=== PATIENT | female | born 1970 | race Caucasian/White ===

== ENCOUNTER 2023-06-14 16:52 | Emergency (ER) | payer OTHER ==
[~2023-06-14] VITALS: Ht 167.6 cm; Wt 79.4 kg
[2023-06-14 16:58] VITALS: BP_SYST 127; PULSE 90; RESP 20; TEMP 97.9; O2SAT 97
[2023-06-14 17:27] LABS: BASOPHILS % (AUTO) 0.3 % (0.0-2.0); EOSINOPHILS # (AUTO) 0.2 K/uL (0.0-0.4); EOSINOPHILS % (AUTO) 2.5 % (0.0-4.0); HEMATOCRIT 36.3 % (36-48); HEMOGLOBIN 12.1 g/dL (12.0-16.0); LYMPHOCYTES # (AUTO) 2.3 K/uL (1.0-5.5); LYMPHOCYTES % (AUTO) 26.8 % (20.5-51.5); MEAN CORPUSCULAR HEMOGLOBIN 30 pg (27-31); MEAN CORPUSCULAR HGB CONC 33 % (32-36); MEAN CORPUSCULAR VOLUME 89 fL (79.0-98.0); MONOCYTES # (AUTO) 0.7 K/uL (0.0-1.0); NEUTROPHILS # (AUTO) 5.2 K/uL (1.8-7.7); NEUTROPHILS % (AUTO) 62.4 % (40.0-70.0); PLATELET COUNT (AUTO) 266 K/uL (130-430); RED BLOOD CELL COUNT(AUTO) 4.09 MIL/uL (4.2-6.2); RED CELL DISTRIBUTION WIDTH 12.5 % (9.0-15.0); WHITE BLOOD COUNT (AUTO) 8.4 K/uL (4.8-10.8)
[2023-06-14] MEDS ORDERED: NACL 0.9% 1,000 ML IV ONE (17:30)
[2023-06-14] MEDS ORDERED: KETOROLAC TROMETHAMINE 30 MG VIAL IVP ONE (17:30)
[2023-06-14 17:39] LABS: CALCIUM 10.4 mg/dL (8.4-11.0); CREATININE 0.7 mg/dL (0.55-1.30); POTASSIUM 4.4 mmol/L (3.5-5.1)
[2023-06-14 17:44] LABS: ALBUMIN 3.5 g/dL (3.4-4.8); TOTAL BILIRUBIN 0.5 mg/dL (0.0-1.0); TOTAL PROTEIN, SERUM 6.8 g/dL (6.4-8.3)
[2023-06-14 18:53] LABS: BILIRUBIN,URINE NEGATIVE (NEGATIVE); BLOOD, URINE 1+ (NEGATIVE); CLARITY/URINE SLIGHTLY CLOUDY (CLEAR); COLOR,URINE YELLOW (YELLOW); GLUCOSE,URINE NEGATIVE (NEGATIVE); KETONES,URINE NEGATIVE (NEGATIVE); LEUKOCYTE ESTERASE ,URINE NEGATIVE (NEGATIVE); NITRITE, URINE NEGATIVE (NEGATIVE); PH,URINE 5.5 (5.0-8.0); PROTEIN URINE NEGATIVE (NEGATIVE); UROBILINOGEN,URINE 0.2 (0.2-1.0)
[2023-06-14 19:23] LABS: BACTERIA,URINE FEW /HPF (None Seen); CALCIUM OXALATE CRYSTALS,UR 0-10 /HPF (None Seen); FINE GRANULAR CASTS,URINE 0-10 /LPF (None Seen); MUCUS,URINE 3+ /LPF (None Seen); WBC,URINE 0-3 /HPF (0-3)
[2023-06-14] MEDS ORDERED: IBUP-1969 PO (19:56)
[2023-06-14] MEDS ORDERED: CYCL10TA24 PO (19:56)
[2023-06-14] MEDS ORDERED: ACET-2634 PO (19:56)
== END 2023-06-14 20:15 | disposition home or self-care (01) ==
LOC: SED 16:52 → EEVIPCON 16:52 → SED 20:15
DX: R10.12 Left upper quadrant pain (principal); R31.9 Hematuria, unspecified; R35.0 Frequency of micturition; Z79.899 Other long term (current) drug therapy
CPT/HCPCS: 99285; 74176; 96374; 96361; 80053; 81000; 85025; 87040; 36415; 76376; 83605; J1885; J7030

== ENCOUNTER 2023-09-07 05:40 | Day surgery (SDC) | payer OTHER ==
[2023-08-28 10:19] LABS: BASOPHILS % (AUTO) 0.4 % (0.0-2.0); BILIRUBIN,URINE NEGATIVE (NEGATIVE); BLOOD, URINE NEGATIVE (NEGATIVE); CLARITY/URINE CLEAR (CLEAR); COLOR,URINE YELLOW (YELLOW); EOSINOPHILS # (AUTO) 0.1 K/uL (0.0-0.4); GLUCOSE,URINE NEGATIVE (NEGATIVE); HEMATOCRIT 40.4 % (36-48); HEMOGLOBIN 13.2 g/dL (12.0-16.0); KETONES,URINE NEGATIVE (NEGATIVE); LEUKOCYTE ESTERASE ,URINE NEGATIVE (NEGATIVE); LYMPHOCYTES # (AUTO) 2.4 K/uL (1.0-5.5); LYMPHOCYTES % (AUTO) 33.2 % (20.5-51.5); MEAN CORPUSCULAR HEMOGLOBIN 30 pg (27-31); MEAN CORPUSCULAR HGB CONC 33 % (32-36); MEAN CORPUSCULAR VOLUME 92 fL (79.0-98.0); MONOCYTES # (AUTO) 0.5 K/uL (0.0-1.0); MONOCYTES % (AUTO) 6.7 % (1.7-9.3); NEUTROPHILS # (AUTO) 4.2 K/uL (1.8-7.7); NEUTROPHILS % (AUTO) 58.7 % (40.0-70.0); NITRITE, URINE NEGATIVE (NEGATIVE); PH,URINE 6.5 (5.0-8.0); PLATELET COUNT (AUTO) 291 K/uL (130-430); PROTEIN URINE NEGATIVE (NEGATIVE); RED CELL DISTRIBUTION WIDTH 13.5 % (9.0-15.0); UROBILINOGEN,URINE 0.2 (0.2-1.0); WHITE BLOOD COUNT (AUTO) 7.1 K/uL (4.8-10.8)
[2023-08-28 11:11] LABS: ALBUMIN 3.3 g/dL (3.4-4.8); CALCIUM 10.2 mg/dL (8.4-11.0); CREATININE 0.56 mg/dL (0.55-1.30); POTASSIUM 4.7 mmol/L (3.5-5.1); TOTAL BILIRUBIN 0.4 mg/dL (0.0-1.0); TOTAL PROTEIN, SERUM 6.9 g/dL (6.4-8.3)
[~2023-09-07] VITALS: Ht 175.3 cm; Wt 87.1 kg
[~2023-09-07 05:40] MED LIST: ACET-2634 PO; CYCL10TA24 PO; IBUP-1969 PO
[2023-09-07 06:34] LABS: HCG,QUAL RESULT NEGATIVE (NEGATIVE)
[2023-09-07] MEDS ORDERED: LR 1,000 ML IV.SOLN IV ONE (06:55)
[2023-09-07] MEDS ORDERED: BUPIVACAINE /PF 0.5% 30 ML VIAL ONE (06:55)
[2023-09-07] MEDS ORDERED: PROPOFOL 200MG/ 20ML VIAL (DIPRIVAN) IV ONE (06:55)
[2023-09-07] MEDS ORDERED: fentaNYL CITRATE/PF 100 MCG/2 ML AMP ONE (06:55)
[2023-09-07] MEDS ORDERED: ROCURONIUM BROMIDE 10 MG/ML (ZEMURON) ONE (06:55)
[2023-09-07] MEDS ORDERED: NS IRRIG SOLN 1000 ML IR ONE (06:55)
[2023-09-07] MEDS ORDERED: ONDANSETRON HCL 4 MG/2 ML VIAL ONE (06:55)
[2023-09-07] MEDS ORDERED: SUGAMMADEX SODIUM 200 MG/2 ML VIAL IV ONE (06:55)
[2023-09-07] MEDS ORDERED: MIDAZOLAM HCL/PF 2 MG/2 ML SYRINGE ONE (06:55)
[2023-09-07] MEDS ORDERED: DEXAMETHASONE SOD PHOSPHATE 4 MG/ML VIAL ONE (06:55)
[2023-09-07] MEDS ORDERED: DESFLURANE 15 MIN GAS INH ONE (06:55)
[2023-09-07] MEDS ORDERED: LIDOCAINE 2%, 20 ML MDV ONE (06:55)
[2023-09-07] MEDS ORDERED: NS 100 ML BAG ONE (06:55)
[2023-09-07] MEDS ORDERED: ceFAZolin SODIUM 2 GM in D5W 100 ML IV ONE (07:00)
[2023-09-07] MEDS ORDERED: ACETAMINOPHEN I.V. 1000 MG 100 ML IV ONE (08:21)
[2023-09-07] MEDS ORDERED: hydrALAZINE HCL 20 MG/ML VIAL IVP PRN (08:30)
[2023-09-07] MEDS ORDERED: MIDAZOLAM HCL 2 MG/2 ML VIAL (VERSED) IVP PRN (08:30)
[2023-09-07] MEDS ORDERED: MEPERIDINE HCL/PF 25 MG/ML DISP.SYRIN IVP PRN (08:30)
[2023-09-07] MEDS ORDERED: LR 1,000 ML IV SCH (08:30)
[2023-09-07] MEDS ORDERED: HYDROmorphone 1 MG/ML INJ. CARTRIDGE IVP PRN ×2 (08:30)
[2023-09-07] MEDS ORDERED: LABETALOL 100 MG/ 20ML VIAL IVP PRN (08:30)
[2023-09-07] MEDS ORDERED: METOCLOPRAMIDE HCL 10 MG/2 ML VIAL IVP PRN (08:30)
[2023-09-07] MEDS ORDERED: OXYCODONE/ACETAMINOPHEN 5-325 TABLET PO PRN ×2 (10:45)
[2023-09-07] MEDS ORDERED: HYDROcodone/ACETAMIN 5-325 MG TAB (NORCO/ VICODIN) PO PRN (10:45)
[2023-09-07] MEDS ORDERED: HYDROmorphone 1 MG/ML INJ. CARTRIDGE IM PRN (10:45)
[2023-09-07] MEDS ORDERED: ALPRAZolam 0.25 MG TABLET PO PRN (10:45)
[2023-09-07] MEDS ORDERED: ONDANSETRON HCL 4 MG/2 ML VIAL IVP PRN (10:45)
[2023-09-07] MEDS: HYDROmorphone 1 MG/ML INJ. CARTRIDGE ONE ×2 (12:05→12:10)
[2023-09-07 12:45] VITALS: BP_SYST 131; PULSE 79; RESP 18; TEMP 96.8; O2SAT 98
[2023-09-07] MEDS: SIMETHICONE 80 MG TAB.CHEW PO SCH ×3 (14:18→22:03)
[2023-09-07] MEDS: ceFAZolin SODIUM 2 GM in D5W 100 ML IV SCH ×2 (14:18→22:03)
[2023-09-07 14:26] VITALS: BP_SYST 131; PULSE 79; RESP 18; TEMP 96.8; O2SAT 98
[2023-09-07] MEDS: KETOROLAC TROMETHAMINE 30 MG VIAL IVP SCH ×2 (17:40→23:59)
[2023-09-07 20:10] VITALS: BP_SYST 109; PULSE 94; RESP 18; TEMP 98.6; O2SAT 97
[2023-09-08] VITALS: BP_SYST 107; PULSE 94; RESP 16; TEMP 97.5; O2SAT 98
[2023-09-08] MEDS: KETOROLAC TROMETHAMINE 30 MG VIAL IVP SCH ×2 (06:42→12:02)
[2023-09-08] MEDS: ceFAZolin SODIUM 2 GM in D5W 100 ML IV SCH (06:42)
[2023-09-08] MEDS: D5LR 1,000 ML IV SCH ×2 (06:43)
[2023-09-08 07:00] VITALS: O2SAT 98
[2023-09-08] MEDS ORDERED: LEVOTHYROXINE SODIUM 0.15 MG TABLET PO SCH (07:00)
[2023-09-08] MEDS ORDERED: LEVOTHYROXINE SODIUM 0.025 MG TABLET PO SCH (07:00)
[2023-09-08 09:00] VITALS: BP_SYST 128; PULSE 81; RESP 16; TEMP 97.9; O2SAT 97
[2023-09-08] MEDS ORDERED: LOSARTAN POTASSIUM 50 MG TABLET (COZAAR) PO SCH (09:00)
[2023-09-08] MEDS: SIMETHICONE 80 MG TAB.CHEW PO SCH ×2 (10:15→13:11)
[2023-09-08 11:44] VITALS: BP_SYST 134; PULSE 87; RESP 16; TEMP 100.1; O2SAT 100
[2023-09-08 15:17] VITALS: BP_SYST 144; PULSE 92; RESP 16; TEMP 101.7; O2SAT 95
[2023-09-08 16:41] VITALS: BP_SYST 128; PULSE 111; RESP 16; TEMP 98.4; O2SAT 97
== END 2023-09-08 17:30 | disposition home or self-care (01) ==
LOC: SMU 05:40 → SDS 05:40 → EEVIPCON 11:30 → SMU 13:02 → SDS 09-08 17:30
PROVIDERS: ATTEND Specialist
DX: N93.8 Other specified abnormal uterine and vaginal bleeding (principal); D25.1 Intramural leiomyoma of uterus; D25.0 Submucous leiomyoma of uterus; R10.2 Pelvic and perineal pain; N81.11 Cystocele, midline; N39.46 Mixed incontinence; N81.6 Rectocele; N83.8 Other noninflammatory disorders of ovary, fallopian tube and broad ligament; I10 Essential (primary) hypertension; E03.9 Hypothyroidism, unspecified; E66.9 Obesity, unspecified; Z88.0 Allergy status to penicillin; Z79.899 Other long term (current) drug therapy
CPT/HCPCS: 81003; 80053; 81001; 84702; 85025; 87081; 36415; 93005; 71046; 58552; 64488; 57260; 57288; 84703; 88302; 88307; J3490 ×2; J1100; J1885 ×2; J2001; J3465; J2405; J2704; J3010; J1170; J7060; J7120; C1727; C1771; J0131; S2900